=== PATIENT | female | born 1985 | race Caucasian/White ===

== ENCOUNTER → 2016-04-24 | Outpatient (CLI) | payer OTHER | END | disposition home or self-care (01) | LOC: C.PAPS 09:45 | PROVIDERS: ATTEND Obstetrics & Gynecology | DX: Z01.419 Encounter for gynecological examination (general) (routine) without abnormal findings (principal) ==

== ENCOUNTER → 2017-04-28 | Outpatient (CLI) | payer OTHER | END | disposition home or self-care (01) | LOC: C.PAPS 11:44 | PROVIDERS: ATTEND Physician Assistant | DX: Z01.419 Encounter for gynecological examination (general) (routine) without abnormal findings (principal) ==

== ENCOUNTER → 2017-04-28 | Outpatient (CLI) | payer OTHER | END | disposition home or self-care (01) | LOC: C.LAB1850 09:43 | PROVIDERS: ATTEND Physician Assistant | DX: R53.83 Other fatigue (principal) ==

== ENCOUNTER → 2017-05-10 | Outpatient (CLI) | payer OTHER ==
[2017-05-10 12:28] LABS: FOLLICLE STIMULAT HORMONE 7.48 IU/L; PROLACTIN 3.54 ng/mL
== END | disposition home or self-care (01) ==
LOC: C.LAB1850 09:59
PROVIDERS: ATTEND Physician Assistant
DX: M81.8 Other osteoporosis without current pathological fracture (principal); E55.9 Vitamin D deficiency, unspecified; Z31.41 Encounter for fertility testing

== ENCOUNTER → 2017-05-14 | Outpatient (CLI) | payer OTHER ==
--- NOTE | 2017-05-14 15:00 | MAMMOGRAPHY REPORT ---
BILATERAL DIGITAL DIAGNOSTIC MAMMOGRAM TOMOSYNTHESIS WITH CAD: 05/14/2017 CLINICAL HISTORY: The patient reports intermittent diffuse bilateral breast tenderness for approximat travis 6-8 months. She denies any palpable lumps or other complaints. TECHNIQUE: Breast tomosynthesis in addition to standard 2D mammography was performed. Current study was also evaluated with a Computer Aided Detection (CAD) system. Bilateral CC and MLO 2-D and tomosy nthesis images were obtained. COMPARISON: No prior exams were available for comparison. BREAST COMPOSITION: The tissue of both breasts is heterogeneously dense, which may obscure small mas ses. FINDINGS: There are no suspicious masses, calcifications, or areas of architectural distortion noted in either breast. Given that the pain is diffuse bilateral and nonfocal, ultrasound was not performe d. IMPRESSION: ACR BI-RADS CATEGORY 1: NEGATIVE There is no mammographic evidence of malignancy in either breast. Recommend clinical follow-up for b ilateral breast tenderness. Also recommend routine bilateral screening mammograms starting at age of 40 unless otherwise clinically indicated. The patient has been verbally notified of the results. Approximately 10% of breast cancers are not detected with mammography. A negative mammographic report should not delay biopsy if a clinically suggestive mass is present. Mali Engle M.D. ah/:05/14/2017 08:32:53 Investor: Kendy PINEDA)(M), [facility] letter sent: Normal 1/2 BI-RADS Code: ACR BI-RADS Category 1: Negative
== END | disposition home or self-care (01) ==
LOC: C.MAMM 08:10
PROVIDERS: ATTEND Physician Assistant
DX: N64.4 Mastodynia (principal)

== ENCOUNTER → 2017-06-08 | Outpatient (CLI) | payer OTHER ==
--- NOTE | 2017-06-08 10:10 | DIAGNOSTIC IMAGING REPORT ---
HYSTEROSALPINGOGRAM HISTORY: Infertility. FLUOROSCOPY TIME: 30 seconds. TECHNIQUE: The cervix was cannulated by the managed care manager-sql developer and water soluble contrast was instilled into the uterus under fluoroscopic guidance. Multiple spot images were obtained. FINDINGS: The uterine cavity is normal in size, shape, and position. The fallopian tubes are patent and there is free peritoneal spill bilaterally. IMPRESSION: Normal hysterosalpingogram. The above report was generated using voice recognition software. It may contain grammatical, syntax or spelling errors. Electronically signed by: Gee Lamas M.D. 06/08/2017 10:08 AM Dictated Date/Time: 06/08/2017 10:08 AM
== END | disposition home or self-care (01) ==
LOC: C.RAD 09:43
PROVIDERS: ATTEND Obstetrics & Gynecology
DX: Z31.41 Encounter for fertility testing (principal)

== ENCOUNTER → 2017-07-22 | Outpatient (CLI) | payer OTHER | END | disposition home or self-care (01) | LOC: C.LABSPEC 13:22 | PROVIDERS: ATTEND Obstetrics & Gynecology | DX: Z34.81 Encounter for supervision of other normal pregnancy, first trimester (principal) ==

== ENCOUNTER → 2017-07-27 | Outpatient (CLI) | payer OTHER ==
[2017-07-27 10:13] LABS: BASO % 0.3 %; BASO ABS # 0.02 K/uL (0-0.2); EOS % 0.8 %; EOS ABS # 0.05 K/uL (0-0.5); HEMATOCRIT 36.7 % (37-47); HEMOGLOBIN 12.8 g/dL (12.0-16.0); LYMPH % 20.4 %; LYMPH ABS # 1.32 K/uL (1.2-3.4); MEAN CELL VOLUME 92.2 fL (80-100); MEAN CORPUSCULAR HEMOGLOBIN 32.2 pg (25-34); MEAN CORPUSCULAR HGB CONC 34.9 g/dl (32-36); MEAN PLATELET VOLUME 10.5 fL (7.4-10.4); MONO ABS # 0.58 K/uL (0.11-0.59); NEUT % 69.5 %; NEUT ABS # 4.51 K/uL (1.4-6.5); PLATELET COUNT 227 K/uL (130-400); RED CELL DISTRIBUTION WIDTH CV 12.4 % (11.5-14.5); RED CELL DISTRIBUTION WIDTH SD 42.4 fL (36.4-46.3); WHITE BLOOD COUNT 6.48 K/uL (4.8-10.8)
== END | disposition home or self-care (01) ==
LOC: C.LAB1850 09:27
PROVIDERS: ATTEND Obstetrics & Gynecology
DX: Z34.81 Encounter for supervision of other normal pregnancy, first trimester (principal)

== ENCOUNTER 2017-11-04 15:18 | Emergency (ER) | payer BC, OTHER ==
[~2017-11-04] VITALS: Ht 152.4 cm; Wt 60.2 kg
[2017-11-04 15:22] VITALS: TEMP 36.7; Ht 152.4 cm; Wt 60.2 kg
--- NOTE | 2017-11-04 15:57 | EMERGENCY ROOM VISIT NOTE ---
History Report prepared by Roxy: Deepak Fernandez Under the Supervision of: Dr. Kyle Stack D.O. First contact with patient: 15:24 Chief Complaint: CALF PAIN Stated Complaint: L CALF PAIN History of Present Illness The patient is a 32 year old female who presents to the Emergency Room with complaints of constant left calf pain that began 9 hours ago after she woke up. Patient states the pain is worsened with pressure. Patient states she has a history of similar symptoms but they usually resolve after "she drinks water and goes to work". Patient adds she is 22 weeks and states she was referred to the ER by her OBGYN Dr. Boss to get "checked out and get a US". Patient denies similar symptoms in the right leg. Patient states she takes vitamin B6, , and vitamin D for her history of vitamin D deficiency. Patient states this her 2nd . She states she had an emergency C- section her first but denies any other complications. Past surgical history includes a wisdom teeth extraction. Patient denies fevers, chills, nausea, changes in blood pressure, urinary symptoms, chest pain, SOB, and cramping. She denies tobacco or alcohol use. Source of History: patient Onset: 9 hours ago Position: other (Left calf) Timing: constant Modifying Factors (Worsening): other (Pressure) Modifying Factors (Relieving): other (None) Associated Symptoms: No fevers, No chills, No chest pain, No SOB, No nausea , No urinary symptoms Review of Systems See HPI for pertinent positives & negatives. A total of 10 systems reviewed and were otherwise negative. Past Medical & Surgical Medical Problems: (1) Delivery by emergency section (2) Vitamin D deficiency Family History Patient reports no known family medical history. Social History Smoking Status: Never Smoker Housing Status: lives with family Occupation Status: employed Current/Historical Medications Scheduled Cholecalciferol (Vitamin D3), 1,000 UNITS PO DAILY Multivit/Min/Iron/Fol Ac/Pren ( Vitamin), 1 TAB PO DAILY Pyridoxine Hcl (Vitamin B 6), 50 MG PO DAILY Scheduled PRN Ondansetron Hcl (Zofran), 1 TAB PO Q6H PRN for Nausea Allergies Coded Allergies: No Known Allergies (Unverified , 11/04/17) Physical Exam Vital Signs Date Time Temp Pulse Resp B/P (MAP) Pulse Ox O2 Delivery O2 Flow Rate FiO2 11/04/17 16:50 74 16 111/62 99 11/04/17 15:22 36.7 78 18 117/77 100 Room Air Physical Exam GENERAL: Patient is awake, alert, and in no acute distress. Patient is resting comfortably and showing no signs of anxiety EYES: The conjunctivae are clear. The pupils are round and reactive. EARS, NOSE, MOUTH AND THROAT: The nose is without any evidence of any deformity. Mucous membranes are moist. Tongue is midline NECK: The neck is nontender and supple. RESPIRATORY: Normal respiratory effort is noted. There is no evidence of wheezing rhonchi or rales to auscultation. CARDIOVASCULAR: Regular rate and rhythm noted. There no murmurs rubs or gallops normal S1 normal S2 GASTROINTESTINAL: Gravid in appearance. No uterine tenderness to palpation. The abdomen is soft. Bowel sounds are present in all quadrants. Abdomen is nontender. BACK: No midline tenderness or or step-off noted range of motion in flexion extension as well as rotation no signs of muscle spasm noted. MUSCULOSKELETAL/EXTREMITIES: There is no evidence of gross deformity. Full range of motion is noted in the hips and shoulders. SKIN: Medial left calf tenderness to palpation. Pulses were symmetric. There is no obvious evidence of any rash. There are no petechiae, pallor or cyanosis noted. NEUROLOGIC: Patient is awake alert and oriented x3. Medical Decision & Procedures ER Provider Diagnostic Interpretation: Radiology results as stated below per my review and radiologist interpretation: L VENOUS DOPP LOWER EXT UNILAT CLINICAL HISTORY: sent by PB for calf pain pain. Edema. TECHNIQUE: Venous Doppler COMPARISON STUDY: None FINDINGS: Normal study IMPRESSION: Normal study The above report was generated using voice recognition software. It may contain grammatical, syntax or spelling errors. Electronically signed by: Gee Lamas M.D. 11/04/2017 4:16 PM ED Course 1525: The patient was evaluated in room B3B. A complete history and physical examination were performed. 1621: Upon reevaluation, the patient is resting comfortably. I discussed the results and treatment plan with her. She verbalized agreement of the treatment plan. She was discharged home. Medical Decision Prior records reviewed and summarized above. Triage Nursing notes reviewed. The patient's history was concerning for swelling and pain in the leg. Differential diagnosis: Etiologies such as DVT, musculoskeletal, infection, joint effusion, trauma, lymphedema, idiopathic, CHF, as well as others were entertained. The patient is a 32-year-old female who was sent to the emergency department for an evaluation of lower extremity pain. She was sent to the emergency department by her FINISH CARPENTER physician for the possibility of DVT. The patient's ultrasound did not show signs of DVT. She was encouraged to continue Tylenol as directed for pain. She was also encouraged to follow-up with her primary care physician for reevaluation. I recommended a repeat ultrasound in 1 week if symptoms are not significantly improved. I also encouraged her to return the emergency department immediately if symptoms change worsen or the need arises. Medication Reconcilliation Current Medication List: was personally reviewed by me Blood Pressure Screening Patient's blood pressure: Normal blood pressure Blood pressure disposition: Did not require urgent referral Impression Primary Impression: Edema of left lower extremity Scribe Attestation The scribe's documentation has been prepared under my direction and personally reviewed by me in its entirety. I confirm that the note above accurately reflects all work, treatment, procedures, and medical decision making performed by me. Departure Information Dispostion Home / Self-Care Forms HOME CARE DOCUMENTATION FORM, IMPORTANT VISIT INFORMATION Patient Instructions ED Leg Swelling Unilateral, My [facility] Additional Instructions Call your primary care physician as well as her primary FINISH CARPENTER physician to schedule a follow-up appointment. Continue all medications as prescribed. I would recommend a repeat ultrasound in 1 week if symptoms do not improve. Return to the emergency department immediately if symptoms change worsen or the need arises.
--- NOTE | 2017-11-04 16:18 | DIAGNOSTIC IMAGING REPORT ---
L VENOUS DOPP LOWER EXT UNILAT CLINICAL HISTORY: sent by PB for calf pain pain. Edema. TECHNIQUE: Venous Doppler COMPARISON STUDY: None FINDINGS: Normal study IMPRESSION: Normal study The above report was generated using voice recognition software. It may contain grammatical, syntax or spelling errors. Electronically signed by: Gee Lamas M.D. 11/04/2017 4:16 PM Dictated Date/Time: 11/04/2017 4:16 PM
[2017-11-04] MEDS ORDERED: ONDA4TAB65 PO (16:22)
[2017-11-04] MEDS ORDERED: PYRI50TA77 PO (16:24)
[2017-11-04] MEDS ORDERED: CHOL1000 PO (16:24)
[2017-11-04] MEDS ORDERED: PRENTAB26 PO (16:25)
[2017-11-04 16:50] VITALS: BP 111/62; PULSE 74; O2SAT 99
== END 2017-11-04 16:50 | disposition home or self-care (01) ==
LOC: C.EDB 15:19
DX: R60.0 Localized edema (principal); O26.892 Other specified pregnancy related conditions, second trimester; Z3A.22 22 weeks gestation of pregnancy; E55.9 Vitamin D deficiency, unspecified; Z79.899 Other long term (current) drug therapy

== ENCOUNTER 2022-08-17 05:42 | Inpatient (IN) ==
--- NOTE | 2022-08-06 13:38 | Anesthesiology Consultation ---
Date of Service August 06, 2022 Assessment & Plan (1) Encounter for pre-operative examination: Plan - 03/03/18 L3 1 attempt. - COVID screening: Per tape controlled machine stitcher on 08/06/2022: Travel screen negative, no known COVID-19 positive contacts or current COVID-19 related symptoms in past 2 weeks. To surgeon's discretion if preop COVID testing is needed. Chart Review Chart Review: Acceptable Risk for Surgery and Patient NOT seen in Pre Admission Testing History Surgery Operation Date: 08/17/22 07:30 Proposed Procedures p Section in LD (Delivery of Baby through Abdominal Incision) - Carol Self MD, FACOG Height/Weight Height: 5 ft Weight: 66.678 kg Allergies Allergy/AdvReac Type Severity Reaction Status Date / Time lactose Allergy Mild Gastrointestinal Verified 08/06/22 12:56 Upset Medications Home Medications Medication Instructions Recorded Confirmed Last Taken prenat.vits,nas,mcb-food-kjaav 1 tab PO QPM 04/28/21 08/06/22 Unknown levothyroxine 25 mcg tablet 25 mcg PO QAM 01/12/22 08/06/22 Unknown budesonide 32 mcg/actuation nasal 2 spray intranasal DAILY 08/06/22 08/06/22 Unknown spray iron,carbonyl 65 mg-vitamin C 125 1 tab PO Q2D 08/06/22 08/06/22 Unknown mg tablet,delayed release (Vitron-C) Past Medical History Medical History Environmental allergies GERD (gastroesophageal reflux disease) INDUCED History of chicken pox History of COVID-19 07/11/22 HOME TEST, NOT HOSP; ELEVATED TEMPERATURE FOR 1 DAY, SEVERE RUNNY NOSE, CONGESTION>RESOLVED. Hypothyroidism "LOW END OF NORMAL, PUT ON MEDICATION TO MAINTAIN " Missed HX Nausea after anesthesia Past Family History Family History Grandmother (Paternal) Diabetes Hypertension Grandfather (Maternal) Diabetes Grandfather (Paternal) Diabetes Hypertension Father Hypertension Denies family history of Pancreatic cancer Ovarian cancer Prostate cancer Breast cancer Colorectal cancer Uterine cancer Past Surgical History Surgical History History of X2 History of esophagogastroduodenoscopy (EGD) History of wisdom tooth extraction Social History Smoking Status: Never smoker Do You Dip or Chew Tobacco: No Hx Alcohol Use: Yes alcohol intake frequency: 0-2 drinks per day Alcohol Intake Frequency Comment: RARELY-"DEFINITELY NOT WHILE " Hx Substance Use: No substance use type: does not use
--- NOTE | 2022-08-12 13:10 | History & Physical Report ---
Date of Service August 12, 2022 Assessment & Plan (1) Supervision of elderly multigravida: (2) Previous delivery affecting , antepartum: Plan Plan repeat c/s. She declines tubal ligation. The risks of surgery were discussed with the patient including the risks of anesthesia, bleeding requiring transfusion, infection, poor wound healing, urinary retention, damage to surrounding structures including bowels, bladder, vessels, nerves and ureters that may require further surgery, hospitalization or intervention. The other risks of any surgery were discussed including heart attack, blood clots, stroke or . Discussed small risk of injury to the baby. questions asked and answered. Planned for 08/17/22. History of Present Illness Chief Complaint: repeat c/s Primary Care Provider: Valeri Mcpherson MD Patient is a 37yowf with iup at 39 2/7 weeks who presents for repeat c/s. Hx of previous c/s x 2. The has been uncomplicated. Notes +fm, no lof/vb. no contractions. and Delivery Plans Covid + 01/02/22, sx's began 12/30/21 AMA Weekly NST's @ 36 weeks Prior x 2 - C/S WITH HARDYK ON 08/17/22, LATANYA TO ASSIST Hypothyroid *Check TFTs Q4wks OB Labs: Blood Type B Positive 01/16/22 Antibody Screen NEGATIVE 01/16/22 Hemoglobin 11.3 g/dl (12.0-16.0) L 05/29/22 Hematocrit 33.2 % (37.0-47.0) L 05/29/22 Mean Corpuscular Volume 91.8 fL (80.0-100.0) 01/16/22 Platelet Count 260 K/uL (130-400) 01/16/22 Rubella IgG Antibody Immune (Immune) 01/16/22 Rapid Plasma Reagin Nonreactive (Nonreactive) 01/16/22 Hepatitis B Surface Antigen NEG (NEG) 07/27/17 Hepatitis B Surface Antigen. NON-REACTIVE (NON-REACTIVE) 01/16/22 Hepatitis C Antibody (EIA) NON-REACTIVE (NON-REACTIVE) 01/16/22 HIV (1&2) Ab and P24 Ag, 4th Gener NEG (NEG) 07/27/17 HIV (1&2) Ag and Ab Confirmation NON-REACTIVE (NON-REACTIVE) 01/16/22 Glucose 1 Hour 50 gm Load 96 mg/dl (70-130) 05/29/22 OB Optional Labs: Chlamydia trachomatis RNA Not Detected (NotDetected) 01/16/22 Neisseria gonorrhoeae RNA Not Detected (NotDetected) 01/16/22 Thyroid Stimulating Hormone (TSH) 1.299 uIu/ml (0.300-4.500) 06/26/22 low risk panorama cf/sma-neg declined afp gbs neg Allergies Allergy/AdvReac Type Severity Reaction Status Date / Time lactose Allergy Mild Gastrointestinal Verified 08/12/22 13:05 Upset Home Medications Medication Instructions Recorded Confirmed Type prenat.vits,nas,paq-aavt-rwqtj 1 tab PO QPM 04/28/21 08/12/22 History levothyroxine 25 mcg tablet 25 mcg PO QAM 01/12/22 08/12/22 History budesonide 32 mcg/actuation nasal 2 spray intranasal DAILY 08/06/22 08/12/22 History spray iron,carbonyl 65 mg-vitamin C 125 1 tab PO Q2D 08/06/22 08/12/22 History mg tablet,delayed release (Vitron-C) Patient History Medical History Environmental allergies GERD (gastroesophageal reflux disease) INDUCED History of chicken pox History of COVID-19 07/11/22 HOME TEST, NOT HOSP; ELEVATED TEMPERATURE FOR 1 DAY, SEVERE RUNNY NOSE, CONGESTION>RESOLVED. Hypothyroidism "LOW END OF NORMAL, PUT ON MEDICATION TO MAINTAIN " Missed HX Nausea after anesthesia Surgical History History of X2 History of esophagogastroduodenoscopy (EGD) History of wisdom tooth extraction Family History Grandmother (Paternal) Diabetes Hypertension Grandfather (Maternal) Diabetes Grandfather (Paternal) Diabetes Hypertension Father Hypertension Denies family history of Pancreatic cancer Ovarian cancer Prostate cancer Breast cancer Colorectal cancer Uterine cancer Social History Smoking Status: Never smoker Second Hand Exposure: No; Do You Dip or Chew Tobacco: No; Hx Alcohol Use: Yes Hx Substance Use: No Preferred Language: Namibian Communication Ability: Effective Geriatric Case Manager Required: No Beliefs That Will Affect Care: None marital status: marital status details: Ridge Pearson(37) [phone] Current Living Situation: Spouse and Family Current Living Situation Comment: lives with spouse and children, 1 dog. 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 Date GA wks Lbr Lgth wt Sex Type del Anes Place Del Prov ? Comment 10/09/14 40 6lb 8oz F Epidural Other [place], [place] No Nuchal cord, heart rate decreasing 03/03/18 39 7lb 15oz F Spinal [facility] Dr. Self No repeat 12/10/20 6 Aborted-Spontaneous 05/05/21 6 Aborted-Spontaneous GLASS WASHER History noncontributory. Physical Exam Constitutional: WD/WN, vitals as above Psychiatric: A+Ox3, euthymic affect Coding Level of Care Code None Diagnoses Supervision of elderly multigravida O09.529 Previous delivery affecting , antepartum O34.219
[2022-08-17] MEDS ORDERED: ceFAZolin 2,000 MG in SYRINGE 0 ML IV SCH (06:00)
[2022-08-17] MEDS ORDERED: LACTATED RINGER'S 1,000 ML IV SCH (06:00)
[2022-08-17] MEDS ORDERED: CITRIC ACID/SODIUM CITRATE 15 ML UDC PO SCH (06:00)
[2022-08-17 06:51] LABS: Basophils # (auto) 0.04 K/uL (0-0.2); Basophils % (auto) 0.5 %; Eosinophils # (auto) 0.09 K/uL (0-0.50); Eosinophils % (auto) 1.1 %; Hematocrit (blood only) 32.7 % (37.0-47.0); Hemoglobin 11.2 g/dl (12.0-16.0); Immature Granulocytes # (auto) 0.04 K/uL (0.01-0.20); Immature Granulocytes % (auto) 0.5 %; Lymphocytes # (auto) 1.72 K/uL (1.2-3.4); Lymphocytes % (auto) 20.7 %; Mean Corpuscular Hemoglobin 30.8 pg (25.0-34.0); Mean Corpuscular Hgb Conc 34.3 g/dL (32.0-36.0); Mean Corpuscular Volume 89.8 fL (80.0-100.0); Mean Platelet Volume 12.2 fL (9.4-12.4); Monocytes # (auto) 0.71 K/uL (0.11-0.59); Monocytes % (auto) 8.6 %; Neutrophils # (auto) 5.69 K/uL (1.40-6.50); Neutrophils % (auto) 68.6 %; Platelet Count 166 K/uL (130-400); RDW Coefficient of Variation 13.4 % (11.5-14.5); RDW Standard Deviation 44.1 fL (36.4-46.3); Red Blood Count 3.64 M/uL (4.20-5.40); White Blood Count 8.29 K/ul (4.8-10.8)
[2022-08-17] MEDS ORDERED: OXYTOCIN 10 UNITS/ML 10ML VIAL ONE (06:55)
[2022-08-17] MEDS ORDERED: MoRPHine SULFATE PF 1 MG/ML 10 ML AMP/VIAL ONE (06:56)
[2022-08-17] MEDS ORDERED: fentaNYL citrate PF 100 MCG/2 ML VIAL ONE (06:56)
--- NOTE | 2022-08-17 07:10 | History & Physical Bridge Note ---
Date of Service August 17, 2022 History & Physical Bridge Note I have examined the patient, reviewed the History & Physical and in the interval since the performance of the History & Physical I have noted the following changes of clinical significance: no changes noted
[2022-08-17] MEDS ORDERED: OXYTOCIN 30 UNITS/500 ML BAG IV PRN (07:12)
[2022-08-17] MEDS ORDERED: diphenhydrAMINE 50 MG/ML VIAL IV PRN (07:39)
[2022-08-17] MEDS ORDERED: NALOXONE HCL 0.08 MG in SYRINGE 1.8 ML IV PRN (07:39)
[2022-08-17] MEDS ORDERED: NALOXONE HCL 0.4 MG/1 ML VIAL/CARP IV PRN (07:39)
[2022-08-17] MEDS ORDERED: LACTATED RINGER'S 500 ML IV PRN (07:39)
[2022-08-17] MEDS ORDERED: MoRPHine SULFATE PF 1 MG/ML 10 ML AMP/VIAL INT SPINAL ONE (07:39)
[2022-08-17] MEDS ORDERED: ONDANSETRON INJ 2 MG/ML 2 ML VIAL IV PRN ×2 (07:39→08:28)
[2022-08-17] MEDS ORDERED: NALOXONE HCL 1 MG in SODIUM CHLORIDE 0.9% 1000ML 1,000 ML IV PRN (07:39)
[2022-08-17] MEDS ORDERED: MEPERIDINE HCL 25 MG/ML CARP/VIAL IV PRN (07:39)
[2022-08-17] MEDS ORDERED: ePHEDrine sulfate 50 MG/ML AMP IV PRN (07:39)
[2022-08-17] MEDS ORDERED: NALBUPHINE HCL INJ 10 MG/ML AMP IV PRN (07:39)
[2022-08-17] MEDS ORDERED: DC INTRASPINAL MORPHINE SCH (07:45)
[2022-08-17] MEDS ORDERED: NO NARCOTICS OR SEDATIVES SCH (07:45)
[2022-08-17] MEDS ORDERED: SODIUM CHLORIDE 0.9% 1000ML 1,000 ML IV SCH (07:45)
[2022-08-17] MEDS ORDERED: PHENYLEPHRINE 100MCG/ML 5ML SYR ONE (07:48)
[2022-08-17] MEDS ORDERED: HYDROCORTISONE ACETATE 25 MG SUPP PR PRN (08:28)
[2022-08-17] MEDS ORDERED: BENZOCAINE 20% AER SPR 82.5 GM CAN EXT PRN (08:28)
[2022-08-17] MEDS ORDERED: DIPHTHERIA/TETANUS/PERTUSSIS Vaccine (Tdap, Age 7+yrs) 0.5mL SYR/VL IM ONE (08:28)
[2022-08-17] MEDS ORDERED: SENNA 8.6 MG TAB PO PRN (08:28)
[2022-08-17] MEDS ORDERED: MAGNESIUM HYDROXIDE SUSP 30 ML UDC PO PRN (08:28)
--- NOTE | 2022-08-17 08:35 | Operative Report ---
PG Post Operative Report Pre & Post Diagnosis Operation Date: 08/17/22 07:30 Pre-Op Diagnosis: Hx of Section Post-Op Diagnosis: Hx of Section I identified the patient and participated in the time-out.: Yes Procedure Operation Date: 08/17/22 07:30 Actual Procedures p repeat lower transverse Section (Delivery of Baby through Abdominal Incision) - Carol Self MD, FACOG Surgeon Carol Self MD, FACOG Psychology Teacher Dr. Marcelo Estimated Blood Loss 500 Findings Consistent with Post-Op Diagnosis viable female infant, apgars 8/9. nl uterus/tubes and ovaries Fluids 1000cc uop 250cc Specimens none Drains rodríguez Anesthesia Type Spinal Complications none Disposition Accompanied Patient To Recovery: No Disposition: L&D Indications Patient is at 39 weeks who presents for repeat c/s. Description of Procedure The patient was taken to the operating room where she was identified verbally and by bracelet. She was seated on the operating table where a spinal anesthetic was placed by anesthesia. She was then placed in the supine position with a leftward tilt. A Rodríguez catheter was placed sterilely. the patient was prepped and draped in a normal standard fashion. the anesthetic was tested and found to be adequate. A time-out was held, identifying correct patient, procedure, positioning and preoperative antibiotics. There were no concerns. A Pfannenstiel skin incision was made with a knife and taken down to the underlying layer of fascia with the knife and Bovie electrocautery. Bleeding was attended to with the Bovie. The fascia was incised in the midline with the knife and taken out laterally with scissors. The superior edge of the fascial incision was grasped, elevated and the underlying layer of rectus muscle was taken off bluntly and with scissors. In a similar fashion, the inferior edge of the fascial incision was grasped, elevated and the underlying layer of rectus muscle was taken off bluntly and with scissors. The muscles were bluntly in the midline. The peritoneum was entered bluntly. The incision was then stretched. The bladder blade was placed. The vesicouterine peritoneum was identified, entered with scissors and taken out laterally with scissors. The bladder flap was created digitally A hysterotomy incision was scored with a knife and the incision was stretched superiorly and inferiorly with the coordinate measuring equipment operator's fingers. The operators hand was placed into the incision and had difficulty delivering the head through the muscle and skin. A vacuum was call for and placed. IT was in the green and the head was delivered. The cup was placed on the forehead and near the eyes. The cup was immediately removed and no trauma was noted. No nuchal cord. The nose and mouth were bulb suctioned. the rest of the was then delivered without difficulty. The nose and mouth were again bulb suctioned. The cord was clamped and cut and the was then handed off to the awaiting electronic technician for drying and attention. Cord blood and segment were obtained. The placenta was Manually extracted. The uterus was exteriorized and cleared of all clot and debris with moistened laparotomy sponges. The hysterotomy incision was repaired in two layers, the first in a running locked layer, the second in an imbricating layer. Hemostasis was noted to be good. Posterior cul-de-sac was irrigated and cleared of all clot and debris. The hysterotomy incision was again inspected and found to be hemostatic. There was a small hematoma on the left angle that was stable over observation. the uterus was reinteriorized. Hysterotomy incision was again inspected and found to be hemostatic. Rectus muscles were reapproximated with several interrupted stitches of 0 Vicryl. The fascia was then reapproximated with 0 Vicryl starting at the edges and meeting in the midline. The subcuticular tissues were copiously irrigated and bleeding was attended to with cautery. The skin was then closed with 4-0 Vicryl in a subcuticular fashion. All sponge, lap and needle counts correct x 2. The patient tolerated the procedure well and was taken to the recovery room in stable condition. I attest to the content of the Intraoperative Record and any orders documented therein. Any exceptions are noted below.
--- NOTE | 2022-08-17 08:35 | Anesthesiology Progress Note ---
Date of Service August 17, 2022 Anesthesia Post Procedure Vital Signs Vital Signs: Temp Pulse Resp BP Pulse Ox 08/17/22 05:55 18 08/17/22 08:29 97 08/17/22 08:29 76 08/17/22 08:29 69 109/62 08/17/22 08:24 97 08/17/22 08:24 72 08/17/22 08:24 74 112/62 08/17/22 07:08 75 08/17/22 07:08 117/74 08/17/22 07:08 98.4 F 75 16 117/74 08/17/22 05:52 92 H 128/67 Transfer of Care Handoff Completed per policy Notes Mental Status: alert / awake / arousable and participated in evaluation Nausea / Vomiting: adequately controlled Pain: adequately controlled Airway Patency, RR, SpO2: stable & adequate BP & HR: stable & adequate Hydration State: stable & adequate Neuraxial Anesthesia: was administered and sensory block is resolving Anesthetic Complications: no major complications apparent and Pt Satisfied with anesthetic care
[2022-08-17] MEDS: OXYTOCIN 20 UNITS in LACTATED RINGER'S 1,000 ML IV SCH ×2 (10:56→19:31)
[2022-08-17] MEDS: KETOROLAC 30 MG/ML VIAL IV PRN ×2 (11:32→19:15)
[2022-08-17] MEDS: SIMETHICONE 80 MG CHEW PO SCH ×3 (12:20→20:36)
[2022-08-17] MEDS: DOCUSATE SODIUM 100 MG CAP PO SCH (20:36)
[2022-08-18] MEDS ORDERED: diphenhydrAMINE 50 MG/ML VIAL IV PRN (01:40)
[2022-08-18] MEDS ORDERED: KETOROLAC 30 MG/ML VIAL IV PRN (01:40)
[2022-08-18] MEDS ORDERED: oxyCODONE/ACETAMINOPHEN 5mg/325mg TAB PO PRN (01:40)
[2022-08-18] MEDS ORDERED: PROMETHAZINE HCL 25 MG in SODIUM CHLORIDE 0.9% 50 ML IV PRN (01:40)
[2022-08-18] MEDS ORDERED: MEPERIDINE HCL 50 MG/ML CARP IV PRN (01:40)
[2022-08-18] MEDS ORDERED: diphenhydrAMINE Capsule 25 MG CAP PO PRN (01:40)
[2022-08-18] MEDS: LACTATED RINGER'S 1,000 ML IV SCH ×3 (03:18→17:41)
--- NOTE | 2022-08-18 05:28 | Obstetrical Progress Note ---
Date of Service <Aixa MonteDO italia - Last Filed: 08/18/22 06:14> August 18, 2022 Assessment & Plan <Aixa MonteDO italia - Last Filed: 08/18/22 06:14> (1) care following delivery: Patient is PPD 1 s/p repeat CS and doing well. - Eating well, voiding well, ambulating well - Vitals reviewed and within normal limits - Pain well controlled with analgesics - OOB, ambulation, diet progression as tolerated - Blood type: B+, GBS neg, rubella immune - Plan to discharge tomorrow - After discharge, 6 week follow up with Dr. Self <Anny Marcelo MD - Last Filed: 08/18/22 07:22> (1) care following delivery: Subjective <Aixa MontegwendolynstantonDO - Last Filed: 08/18/22 06:14> Patient is a 37 yo female is POD #1 following delivery at 39 2/7 weeks. She reports feeling well overall this morning. 4-5/10 pain well managed on analgesics. Slow to start voiding after removal of catheter but able to empty bladder completely. Tolerating regular meals overnight and able to ambulate some. She has passed gas. Persistent lochia with some improvement this morning. Currently breast feeding. Review of Systems Denies fever, chills, sweats. Denies SOB, difficulty breathing, chest pain, palpitations, and chest pressure. Denies breast pain. Denies dysuria. Denies headache or changes in vision. Physical Exam <Aiax ElliottLandon LavellDO [place]alia - Last Filed: 08/18/22 06:14> General: Alert and oriented. No acute distress. CV: Regular rate and rhythm. No murmurs. Respiratory: CTA bilaterally. No rhonchi, wheezes, or crackles. No increased work of breathing. Abdomen: Positive bowel sounds. Soft, nontender, and nondistended. Uterus: Fundus firm and palpable 2 cm below umbilicus. Lower extremities: No LE edema. No deep calf pain. Results & Data <Aixa ElliottLandon Enrique DO - Last Filed: 08/18/22 06:14> Vital Signs (Past 12 Hours) Vital Signs Temp Pulse Resp BP Pulse Ox O2 Del Method 08/18/22 02:45 36.9 C 66 18 121/78 96 Room Air 08/18/22 02:00 18 95 08/18/22 01:00 18 96 08/18/22 00:06 18 95 08/17/22 23:00 36.9 C 73 18 110/72 96 Room Air 08/17/22 23:00 18 96 08/17/22 22:00 18 95 08/17/22 21:00 18 95 08/17/22 20:00 18 97 08/17/22 19:05 36.8 C 73 18 112/75 99 Room Air 08/17/22 19:05 18 99 08/17/22 19:05 Room Air 08/17/22 18:00 16 98 <Anny Marcelo MD - Last Filed: 08/18/22 07:22> Co-Signing Physician Notes Resident Physician Supervision Note: I interviewed and examined the patient. Discussed with Dr. Enrique and agree with findings and plan as documented in the note. Any exceptions or clarifications are listed here: POD1 s/p rLTCS, doing well. VSS, exam benign and wnl, dressing c/d/i - to remove in shower. Continue routine pp care Documented By: Anny Marcelo MD Resident Activity Tracking <Aixa Enrique DO - Last Filed: 08/18/22 06:14> Resident Involvement: Resident Care Provided Care Provided: OB Delivery
[2022-08-18 06:33] LABS: Basophils # (auto) 0.05 K/uL (0-0.2); Basophils % (auto) 0.5 %; Eosinophils # (auto) 0.13 K/uL (0-0.50); Eosinophils % (auto) 1.3 %; Hematocrit (blood only) 34.7 % (37.0-47.0); Hemoglobin 11.9 g/dl (12.0-16.0); Immature Granulocytes # (auto) 0.05 K/uL (0.01-0.20); Immature Granulocytes % (auto) 0.5 %; Lymphocytes # (auto) 1.37 K/uL (1.2-3.4); Lymphocytes % (auto) 13.3 %; Mean Corpuscular Hemoglobin 30.7 pg (25.0-34.0); Mean Corpuscular Hgb Conc 34.3 g/dL (32.0-36.0); Mean Corpuscular Volume 89.7 fL (80.0-100.0); Mean Platelet Volume 12.2 fL (9.4-12.4); Monocytes # (auto) 0.64 K/uL (0.11-0.59); Monocytes % (auto) 6.2 %; Neutrophils # (auto) 8.03 K/uL (1.40-6.50); Neutrophils % (auto) 78.2 %; Platelet Count 169 K/uL (130-400); RDW Coefficient of Variation 13.5 % (11.5-14.5); RDW Standard Deviation 44.1 fL (36.4-46.3); Red Blood Count 3.87 M/uL (4.20-5.40); White Blood Count 10.27 K/ul (4.8-10.8)
[2022-08-18] MEDS: SIMETHICONE 80 MG CHEW PO SCH ×4 (07:43→20:31)
[2022-08-18] MEDS: DOCUSATE SODIUM 100 MG CAP PO SCH ×2 (07:44→20:31)
[2022-08-18] MEDS: FERROUS SULFATE 325 MG TAB PO SCH (07:44)
[2022-08-18] MEDS: IBUPROFEN 600 MG TAB PO PRN ×3 (07:44→17:40)
[2022-08-18] MEDS: PRENATAL VITAMIN 1 TAB PO SCH (07:44)
[2022-08-18] MEDS ORDERED: bisacodyL 5 MG TABEC PO SCH (20:00)
[2022-08-19] MEDS: IBUPROFEN 600 MG TAB PO PRN ×6 (00:36→23:12)
--- NOTE | 2022-08-19 06:12 | Obstetrical Progress Note ---
Date of Service <Aixa ElliottLandon Enrique DO - Last Filed: 08/19/22 07:42> August 19, 2022 Assessment & Plan <Aixa Mcbride DO Iva - Last Filed: 08/19/22 07:42> (1) care following delivery: Patient is PPD 2 s/p repeat CS and doing well. - Eating well, voiding well, ambulating well - Vitals reviewed and within normal limits - Pain well controlled with analgesics - OOB, ambulation, diet progression as tolerated - Blood type: B+, GBS neg, rubella immune - Plan to discharge tomorrow - After discharge, 6 week follow up with Dr. Self <Zahra Boss MD, FACOG - Last Filed: 08/19/22 07:52> (1) care following delivery: Subjective <Aixa Mcbride DO [place]va - Last Filed: 08/19/22 07:42> Patient is a 37 yo female is POD #2 following delivery at 39 2/7 weeks. She reports feeling well overall this morning. She denies abdominal cramping. Pain well managed on analgesics. She did notice an increase in her pain due to the elastic shorts she was wearing. Voiding without issue. Tolerating regular meals overnight and able to ambulate some. Persistent lochia with some improvement this morning. Currently breast feeding. Review of Systems Denies fever, chills, sweats. Denies SOB, difficulty breathing, chest pain, palpitations, and chest pressure. Denies breast pain. Denies dysuria. Denies headache or changes in vision. Physical Exam <Aixa ElliottLandon Enrique DO - Last Filed: 08/19/22 07:42> General: Alert and oriented. No acute distress. CV: Regular rate and rhythm. No murmurs. Respiratory: CTA bilaterally. No rhonchi, wheezes, or crackles. No increased work of breathing. Abdomen: Positive bowel sounds. Soft, nontender, and nondistended. Uterus: Fundus firm and palpable 3 cm below umbilicus. Surgical scar clean and healing well. Lower extremities: No LE edema. No deep calf pain. Results & Data <Aixa Enrique DO - Last Filed: 08/19/22 07:42> Vital Signs (Past 12 Hours) Vital Signs Temp Pulse Resp BP 08/19/22 00:45 36.8 C 68 18 138/82 08/18/22 20:30 36.4 C L 78 18 131/89 <Zahra Boss MD, FACOG - Last Filed: 08/19/22 07:52> Co-Signing Physician Notes Resident Physician Supervision Note: I was present with [Name of resident] during the history and exam. I discussed the case with the resident and agree with the findings and plan as documented in the note. Any exceptions or clarifications are listed here: [None] Documented By: Zahra Boss MD, FACOG Resident Activity Tracking <Aixa Enrique DO - Last Filed: 08/19/22 07:42> Resident Involvement: Resident Care Provided Care Provided: OB Delivery
[2022-08-19 07:11] LABS: Hematocrit (blood only) 32.5 % (37.0-47.0); Hemoglobin 10.9 g/dl (12.0-16.0)
[2022-08-19] MEDS ORDERED: bisacodyL 10 MG SUPP PR PRN (08:29)
[2022-08-19] MEDS: PRENATAL VITAMIN 1 TAB PO SCH (08:43)
[2022-08-19] MEDS: ACETAMINOPHEN 325 MG TAB PO PRN ×4 (08:43→23:13)
[2022-08-19] MEDS: SIMETHICONE 80 MG CHEW PO SCH ×4 (08:43→19:16)
[2022-08-19] MEDS: FERROUS SULFATE 325 MG TAB PO SCH (08:43)
[2022-08-19] MEDS: DOCUSATE SODIUM 100 MG CAP PO SCH ×2 (08:44→19:42)
[2022-08-20] MEDS: ACETAMINOPHEN 325 MG TAB PO PRN ×3 (05:12→12:50)
[2022-08-20] MEDS: IBUPROFEN 600 MG TAB PO PRN ×3 (05:12→12:49)
--- NOTE | 2022-08-20 05:50 | Obstetrical Progress Note ---
Date of Service <Aixa MonteDO [place] - Last Filed: 08/20/22 06:26> August 20, 2022 Assessment & Plan <Aixa MontegwendolynstantonDO - Last Filed: 08/20/22 06:26> (1) care following delivery: Patient is PPD 3 s/p repeat CS and doing well. - Eating well, voiding well, ambulating well - Vitals reviewed and within normal limits - Pain well controlled with analgesics - OOB, ambulation, diet progression as tolerated - Blood type: B+, GBS neg, rubella immune - Plan to discharge today - After discharge, 6 week follow up with Dr. Self <Carol Self MD, FACOG - Last Filed: 08/20/22 07:32> (1) care following delivery: Subjective <Aixa MonteDO [place] - Last Filed: 08/20/22 06:26> Patient is a 37 yo female is POD #3 following delivery at 39 2/7 weeks. She reports feeling well overall this morning. She denies abdominal cramping and pain well managed on analgesics. Voiding without issue. Tolerating regular meals overnight and able to ambulate some. She has passed gas and had multiple bowel movements. Persistent lochia with some improvement this morning. Currently breast feeding. Review of Systems Denies fever, chills, sweats. Denies SOB, difficulty breathing, chest pain, palpitations, and chest pressure. Denies breast pain. Denies dysuria. Denies headache or changes in vision. Physical Exam <Aixa MonteDO [place] - Last Filed: 08/20/22 06:26> General: Alert and oriented. No acute distress. CV: Regular rate and rhythm. No murmurs. Respiratory: CTA bilaterally. No rhonchi, wheezes, or crackles. No increased work of breathing. Abdomen: Positive bowel sounds. Soft, nontender, and nondistended. Uterus: Fundus firm and palpable 3 cm below umbilicus. Surgical scar clean and healing well w/o erythema or purulence. Lower extremities: No LE edema. No deep calf pain. Results & Data <Aixa ElliottLandon Enrique DO - Last Filed: 08/20/22 06:26> Vital Signs (Past 12 Hours) Vital Signs Temp Pulse Resp BP Pulse Ox O2 Del Method 08/19/22 23:10 36.7 C 71 16 115/75 96 Room Air 08/19/22 19:10 36.7 C 74 16 121/75 98 Room Air <Carol Self MD, FACOG - Last Filed: 08/20/22 07:32> Co-Signing Physician Notes Resident Physician Supervision Note: I interviewed and examined the patient. Discussed with Dr. Enrique and agree with findings and plan as documented in the note. Any exceptions or clarifications are listed here: Doing well. Plan d/c. Instructions given. Documented By: Carol Self MD, FACOG Resident Activity Tracking <Aixa Enrique DO - Last Filed: 08/20/22 06:26> Resident Involvement: Resident Care Provided Care Provided: OB Delivery
[2022-08-20] MEDS: SIMETHICONE 80 MG CHEW PO SCH ×2 (08:48→12:49)
[2022-08-20] MEDS: PRENATAL VITAMIN 1 TAB PO SCH (08:48)
[2022-08-20] MEDS: FERROUS SULFATE 325 MG TAB PO SCH (08:48)
[2022-08-20] MEDS: DOCUSATE SODIUM 100 MG CAP PO SCH (08:49)
--- NOTE | 2022-08-22 13:27 | Discharge Summary ---
Date of Service August 22, 2022 Admission HPI Per Admitting Provider Luisa is a 37yowf who presents for repeat c/s. Please see admitting H&P for full details. Discharge Data Consultations 08/17/22 05:49 Consult Anesthesiology Stat Procedures Performed Operation Date: 08/17/22 07:30 Actual Procedures p Section (Delivery of Baby through Abdominal Incision) - Carol Self MD, FACOG Hospital Course (1) care following delivery: (2) Supervision of elderly multigravida: (3) Previous delivery affecting , antepartum: Plan The patient was admitted and underwent a repeat c/s without complication. EBL--500cc. Patient's postop course uncomplicated--tolerated regular diet, ambulated without difficulty, rodríguez removed and voided, pain controlled with oral pain meds. She was d/c on POD#3. Coding Level of Care Code None Diagnoses care following delivery Z39.2 Supervision of elderly multigravida O09.529 Previous delivery affecting , antepartum O34.219
== END 2022-08-20 13:45 | disposition home or self-care (01) | DRG 788 ==
LOC: 4S1 05:42 → EDSTATUS 07:30 → 4E2 10:45